=== PATIENT | male | born 1930 | race Caucasian/White ===

== ENCOUNTER 2017-05-12 10:43 | Outpatient (CLI) | payer MEDICARE, OTHER ==
[2017-05-12 10:57] LABS: BASOPHILS % 0.7 (0.0-1.5); EOSINOPHILS % 1.5 % (0.0-6.8); MEAN CORPUSCULAR HEMOGLOBIN 27.1 pg (28.0-34.0); MEAN CORPUSCULAR VOLUME 85.7 fl (80.0-100.0); MONOCYTES % 5.2 % (0.0-11.0); NEUTROPHILS # 5.8 # k/uL (1.4-7.7)
[2017-05-12 11:16] LABS: eGFR (African) > 60; eGFR (Non-African) > 60
== END 2017-05-12 10:44 ==
LOC: LABRHC 10:43
PROVIDERS: ATTEND Family Medicine
DX: R53.82 Chronic fatigue, unspecified (principal); E78.5 Hyperlipidemia, unspecified
CPT/HCPCS: 80053; 80061; 85025

== ENCOUNTER 2018-02-05 14:35 | Outpatient (CLI) | payer MEDICARE, OTHER | END 2018-02-05 14:36 | LOC: LABRHC 14:35 | PROVIDERS: ATTEND Family Medicine | DX: N39.0 Urinary tract infection, site not specified (principal); B96.20 Unspecified Escherichia coli [E. coli] as the cause of diseases classified elsewhere; R31.9 Hematuria, unspecified; Z16.24 Resistance to multiple antibiotics | CPT/HCPCS: 87086; 87186 ==